=== PATIENT | female | born 1960 | race Caucasian/White ===

== ENCOUNTER 2019-02-15 15:40 | Inpatient (IN) | payer OTHER ==
[~2019-02-15] VITALS: Ht 152.4 cm; Wt 76.0 kg
[~2019-02-15 15:40] MED LIST: CEPH500 PO; CRUTCH4 USE; DOXY100 PO; HYDACE5 PO; MULVITMINE; RXHYDACE PO; SULTRIDS PO
[2019-02-15] MEDS ORDERED: LOSA25 (16:01)
[2019-02-15 16:07] LABS: BASOPHILS ABSOLUTE AUTO 0.03 K/mm3 (0.00-0.23); BASOPHILS PERCENT AUTO 0 % (0-2); EOSINOPHILS PERCENT AUTO 0 % (0-6); Hematocrit 44.5 % (33.0-51.0); Hemoglobin 14.8 g/dL (11.5-16.0); IMMATURE GRAN PERCENT AUTO 1 % (0-1); LYMPHOCYTES ABSOLUTE AUTO 1.32 K/mm3 (0.84-5.20); LYMPHOCYTES PERCENT AUTO 8 % (21-46); MONOCYTES ABSOLUTE AUTO 0.82 K/mm3 (0.16-1.47); MONOCYTES PERCENT AUTO 5 % (4-13); Mean Corpuscular HGB 29.9 pg (26.0-34.0); Mean Corpuscular HGB Conc 33.3 g/dL (31.5-36.5); Mean Corpuscular Volume 90 fL (80-100); Mean Platelet Volume 9.4 fL (9.1-12.4); NEUTROPHILS ABSOLUTE AUTO 14.33 K/mm3 (1.96-9.15); NEUTROPHILS PERCENT AUTO 86 % (41-73); Platelet Count 263 K/mm3 (150-400); RDW Standard Deviation 42.9 fL (35.1-46.3); Red Blood Cell Count 4.95 M/mm3 (3.80-5.20)
[2019-02-15 16:23] LABS: Alanine Aminotransfer (ALT/SGP 32 U/L (12-78); Albumin, Blood 3.9 g/dL (3.4-5.0); Albumin/Globulin Ratio 1.1 (0.8-1.8); Alk Phos 65 U/L (50-136); Anion Gap 7 mmol/L (6-16); Aspartate Aminotrans (AST/SGOT 36 U/L (12-37); Bilirubin, Total 2.7 mg/dL (0.1-1.0); Blood Urea Nitrogen 8 mg/dL (8-24); Bun/Creatinine Ratio 15.3 (12.0-20.0); CO2, Blood 23 mmol/L (21-32); Calcium, Blood 8.8 mg/dL (8.5-10.1); Chloride, Blood 106 mmol/L (98-108); Creatinine, Blood 0.52 mg/dL (0.40-1.00); Globulin, Blood 3.4 g/dL (2.2-4.0); Glomerular Filtration Rate >60 (60-); Glucose, Blood 130 mg/dL (70-99); Potassium, Blood 3.6 mmol/L (3.5-5.5); Sodium, Blood 136 mmol/L (136-145); Total Protein, Blood 7.3 g/dL (6.4-8.2)
[2019-02-15] MEDS ORDERED: LOSA50 PO (16:42)
[2019-02-15] MEDS ORDERED: EMERGEN-C 1,01000 MG PO (16:42)
--- NOTE | 2019-02-15 18:19 | NUR ---
SHIFT SUMMARY NEW ER ADMIT OF DIVERTIC WITH MICROPERF. PT ALERT, ORIENTED, AND INDEP. PT REPORTS MINIMAL ABD PAIN AT THIS TIME. NPO. IVF INFUSING WITH ABX. VSS. ORIENTED TO ROOM AND CALL LIGHT. WILL CONT TO MONITOR.
--- NOTE | 2019-02-16 03:58 | NUR ---
SHIFT SUMMARY PT A&O X4 T/O SHIFT. HOSP. DAY 1. ABD PAIN MANAGED PER EMAR; ABD SOFT; BT X4; PT REPORTS LOOSE STOOLS; PT DENIES NUASEA. NPO; ORAL SWABS AT BEDSIDE; ORAL CARE SUPPLIES IN ROOM; PT INDEPENDENT IN ROOM. SCD'S TO BLE'S. CALL LIGHT IN REACH; PT DEMONSTRATES USE. WCTM UNTIL REPORT TO DAY SHIFT RN.
[2019-02-16 04:26] LABS: BASOPHILS ABSOLUTE AUTO 0.03 K/mm3 (0.00-0.23); BASOPHILS PERCENT AUTO 0 % (0-2); EOSINOPHILS PERCENT AUTO 0 % (0-6); Hematocrit 38.6 % (33.0-51.0); IMMATURE GRAN ABSOLUTE AUTO 0.08 K/mm3 (0.00-0.10); IMMATURE GRAN PERCENT AUTO 1 % (0-1); LYMPHOCYTES ABSOLUTE AUTO 1.17 K/mm3 (0.84-5.20); LYMPHOCYTES PERCENT AUTO 8 % (21-46); MONOCYTES ABSOLUTE AUTO 0.83 K/mm3 (0.16-1.47); MONOCYTES PERCENT AUTO 6 % (4-13); Mean Corpuscular HGB 29.7 pg (26.0-34.0); Mean Corpuscular HGB Conc 33.7 g/dL (31.5-36.5); Mean Corpuscular Volume 88 fL (80-100); Mean Platelet Volume 9.5 fL (9.1-12.4); NEUTROPHILS ABSOLUTE AUTO 12.66 K/mm3 (1.96-9.15); NEUTROPHILS PERCENT AUTO 86 % (41-73); Platelet Count 221 K/mm3 (150-400); RDW Coefficient Variation 13.2 % (11.7-14.2); RDW Standard Deviation 42.5 fL (35.1-46.3); Red Blood Cell Count 4.38 M/mm3 (3.80-5.20); White Blood Cell Count 14.77 K/mm3 (4.00-11.30)
[2019-02-16 04:40] LABS: Anion Gap 7 mmol/L (6-16); Blood Urea Nitrogen 9 mg/dL (8-24); Bun/Creatinine Ratio 16.3 (12.0-20.0); CO2, Blood 24 mmol/L (21-32); Calcium, Blood 8.2 mg/dL (8.5-10.1); Chloride, Blood 111 mmol/L (98-108); Creatinine, Blood 0.55 mg/dL (0.40-1.00); Glomerular Filtration Rate >60 (60-); Glucose, Blood 116 mg/dL (70-99); Potassium, Blood 3.3 mmol/L (3.5-5.5); Sodium, Blood 142 mmol/L (136-145)
[2019-02-16 04:43] LABS: International Normalized Ratio 1.21; Prothrombin Time Results 12.6 Sec (9.7-11.5)
--- NOTE | 2019-02-16 19:21 | NUR ---
PT HAS BEEN STABLE THIS SHIFT. DR CAMPOVERDE CONSULTED. PLAN TO CONT WITH CONSERVATIVE TREATMENT. PT REMAINS ON ICE CHIPS ONLY. INDEP TO BATHROOM. DANETTE URINE. CONT FREQUENT DIARRHEA. CONT IV FLUIDS. PAIN MANAGED WITH TYLENOL AND FENTANYL ORDERED. ZOFRAN X1 FOR NAUSEA, NO EMESIS. LABS TO REPEAT IN THE AM. PT USES CALL LIGHT APPROPRIATELY.
--- NOTE | 2019-02-17 03:38 | NUR ---
SHIFT SUMMARY PT A&O X4 T/O SHIFT. LOW, TRANSVERSE ABD PAIN MANAGED PER EMAR. PT CONT. TO HAVE FREQUENT LOOSE/LIQUID BM'S. NAUSEA X1; NO EMESIS. PT NPO WITH ICE CHIPS AT BEDSIDE. ORAL SWABS AND ORAL CARE SUPPLIES IN PT ROOM. VSS; RA, PT DENIES SOB AND CP. PT INDEPENDENT IN ROOM AND PERSONAL CARE. SCD'S TO BLE'S. CALL LIGHT IN REACH; PT DEMONTRATES USE. WCTM UNTIL REPORT TO DAY SHIFT RN.
[2019-02-17 04:04] LABS: BASOPHILS ABSOLUTE AUTO 0.02 K/mm3 (0.00-0.23); BASOPHILS PERCENT AUTO 0 % (0-2); EOSINOPHILS PERCENT AUTO 0 % (0-6); Hematocrit 36.7 % (33.0-51.0); Hemoglobin 11.9 g/dL (11.5-16.0); IMMATURE GRAN ABSOLUTE AUTO 0.05 K/mm3 (0.00-0.10); IMMATURE GRAN PERCENT AUTO 0 % (0-1); LYMPHOCYTES ABSOLUTE AUTO 1.24 K/mm3 (0.84-5.20); LYMPHOCYTES PERCENT AUTO 10 % (21-46); MONOCYTES ABSOLUTE AUTO 0.59 K/mm3 (0.16-1.47); MONOCYTES PERCENT AUTO 5 % (4-13); Mean Corpuscular HGB 29.1 pg (26.0-34.0); Mean Corpuscular HGB Conc 32.4 g/dL (31.5-36.5); Mean Corpuscular Volume 90 fL (80-100); Mean Platelet Volume 9.5 fL (9.1-12.4); NEUTROPHILS PERCENT AUTO 84 % (41-73); Platelet Count 202 K/mm3 (150-400); RDW Coefficient Variation 13.2 % (11.7-14.2); RDW Standard Deviation 43.8 fL (35.1-46.3); Red Blood Cell Count 4.09 M/mm3 (3.80-5.20)
[2019-02-17 04:18] LABS: Anion Gap 6 mmol/L (6-16); Blood Urea Nitrogen 10 mg/dL (8-24); Bun/Creatinine Ratio 21.1 (12.0-20.0); CO2, Blood 23 mmol/L (21-32); Calcium, Blood 8.1 mg/dL (8.5-10.1); Chloride, Blood 114 mmol/L (98-108); Creatinine, Blood 0.47 mg/dL (0.40-1.00); Glomerular Filtration Rate >60 (60-); Glucose, Blood 99 mg/dL (70-99); Potassium, Blood 3.5 mmol/L (3.5-5.5); Sodium, Blood 143 mmol/L (136-145)
--- NOTE | 2019-02-17 08:48 | NUR ---
REPORTS ABD PAIN IS "STILL SORE BUT BETTER" MEDICATED FOR PAIN WTIH FENTANYL ORDERED, DENIES ANY NAUSEA, CONT. REPORTS CONTINUES TO HAVE LOOSE/WATERY STOOLS, DENIES ANY OTHER DISCOMFORT, CONT. CURRENT TX.
--- NOTE | 2019-02-17 18:20 | NUR ---
SUMMARY PAIN IS TOLERABLE WITH FENTANYL IV, DENIES ANY NAUSEA, CONT. TO HAVE LOOSE/WATERY STOOLS, TAKING SMALL AMOUNTS OF CLEAR LIQUIDS, REPORT HAVING SOME BLOATING AFTER A FEW SIPS OF CLEARS, REPORTS PASSING FLATUS, NO ACUTE CHANGES THIS SHIFT.
[2019-02-18 03:54] LABS: BASOPHILS ABSOLUTE AUTO 0.03 K/mm3 (0.00-0.23); BASOPHILS PERCENT AUTO 0 % (0-2); EOSINOPHILS ABSOLUTE AUTO 0.03 K/mm3 (0.00-0.68); EOSINOPHILS PERCENT AUTO 0 % (0-6); Hematocrit 34.6 % (33.0-51.0); Hemoglobin 11.3 g/dL (11.5-16.0); IMMATURE GRAN ABSOLUTE AUTO 0.03 K/mm3 (0.00-0.10); IMMATURE GRAN PERCENT AUTO 0 % (0-1); LYMPHOCYTES ABSOLUTE AUTO 1.25 K/mm3 (0.84-5.20); LYMPHOCYTES PERCENT AUTO 14 % (21-46); MONOCYTES ABSOLUTE AUTO 0.48 K/mm3 (0.16-1.47); MONOCYTES PERCENT AUTO 5 % (4-13); Mean Corpuscular HGB 29.3 pg (26.0-34.0); Mean Corpuscular HGB Conc 32.7 g/dL (31.5-36.5); Mean Corpuscular Volume 90 fL (80-100); Mean Platelet Volume 9.6 fL (9.1-12.4); NEUTROPHILS ABSOLUTE AUTO 7.07 K/mm3 (1.96-9.15); NEUTROPHILS PERCENT AUTO 80 % (41-73); Platelet Count 223 K/mm3 (150-400); RDW Coefficient Variation 13.2 % (11.7-14.2); RDW Standard Deviation 43.8 fL (35.1-46.3); Red Blood Cell Count 3.86 M/mm3 (3.80-5.20); White Blood Cell Count 8.89 K/mm3 (4.00-11.30)
[2019-02-18 04:08] LABS: Anion Gap 7 mmol/L (6-16); Blood Urea Nitrogen 8 mg/dL (8-24); Bun/Creatinine Ratio 18.6 (12.0-20.0); CO2, Blood 23 mmol/L (21-32); Calcium, Blood 7.8 mg/dL (8.5-10.1); Chloride, Blood 113 mmol/L (98-108); Creatinine, Blood 0.43 mg/dL (0.40-1.00); Glomerular Filtration Rate >60 (60-); Glucose, Blood 99 mg/dL (70-99); Potassium, Blood 3.4 mmol/L (3.5-5.5); Sodium, Blood 143 mmol/L (136-145)
--- NOTE | 2019-02-18 07:52 | NUR ---
SUMMARY PT REPORTING NAUSEA AFTER CLREAR LIQS PO. ZOFRAN EFFECTIVE.HAVING DIARRHEA.
--- NOTE | 2019-02-18 18:30 | NUR ---
SUMMARY: NO ACUTE CHANGE TODAY. VSS, PT A/O, INDEPENDENT IN ROOM. PT MEDICATED FOR PAIN X1 OTHERWISE HAS DENIED PAIN, N/V. CONTINUES TO HAVE SOME DIAHHREA. DR. CARLSON AND DR. ROSE SAW PT, SEE NOTES. DR. ROSE ADVANCED DIET TO CLEAR LIQ AND PT HAS TOLERATED WELL. NO ACUTE CONCERNS AT THIS TIME. WILL CTM AND REPORT TO NOAH BLAIR.
--- NOTE | 2019-02-19 03:59 | NUR ---
SHIFT SUMMARY PT A&O X4 T/O SHIFT. ABD SOFT, BT X4. ABD PAIN MANAGED PER EMAR; PT C/O HEADACHE MANAGED PER EMAR AND WITH PEPSI, PT STS REGULAR CAFFEINE INTAKE. PT REPORTS IMPROVED PAIN LEVELS THIS AM. PT REPORTS MILD PASSING NAUSEA, NO EMESIS. SCD'S TO BLE'S. CALL LIGHT IN REACH; PT DEMONSTRATES USE. WCTM UNTIL REPORT TO DAY SHIFT RN.
[2019-02-19 05:29] LABS: Anion Gap 7 mmol/L (6-16); Blood Urea Nitrogen 5 mg/dL (8-24); Bun/Creatinine Ratio 12.3 (12.0-20.0); CO2, Blood 25 mmol/L (21-32); Calcium, Blood 8.4 mg/dL (8.5-10.1); Chloride, Blood 108 mmol/L (98-108); Creatinine, Blood 0.41 mg/dL (0.40-1.00); Glomerular Filtration Rate >60 (60-); Glucose, Blood 114 mg/dL (70-99); Potassium, Blood 3.2 mmol/L (3.5-5.5); Sodium, Blood 140 mmol/L (136-145)
[2019-02-19] MEDS ORDERED: Augmentin 875-1 EACH PO (10:56)
[2019-02-19] MEDS ORDERED: Norco 5-325 Ta1 EACH PO (10:57)
--- NOTE | 2019-02-19 11:22 | NUR ---
DISCHARGE SUMMARY PT A&OX4, VSS, LEFT FLOOR VIA WC WITH BOTTLE PACKER TO GO HOME WITH FIANCEE AND MOTHER, WITH ALL PERSONAL POSSESSIONS INCLUDING DISCHARGE PACKET AND 1 NARC SCRIPT; AUGMENTIN SCRIPT FAXED TO [facility]. DISCHARGE INSTRUCTIONS PROVIDED. PT REP UNDERSTANDING THOSE INSTRUCTIONS INCLUDING 2WK FU WITH SURGEON AND FIRST AVAILABLE APPT FOLLOWUP WITH PCP. IV DC.
== END 2019-02-19 11:17 | disposition home or self-care (01) | DRG 392 ==
LOC: ER 15:40 → SURS 17:14
PROVIDERS: Emergency Medicine; Internal Medicine; Nurse Practitioner Acute Care; ADMIT Internal Medicine
DX: K57.20 Diverticulitis of large intestine with perforation and abscess without bleeding (principal); I10 Essential (primary) hypertension; E87.6 Hypokalemia
CPT/HCPCS: 36415; 74176; 80048; 80053; 83735; 85025; 85610; 96365; 96375; 99285-25; A9270; J0360; J0696; J1885; J2405; J2543; J3010; J3480; J7030

== ENCOUNTER 2019-05-06 06:46 | Day surgery (SDC) | payer OTHER ==
[~2019-05-06] VITALS: Ht 152.4 cm; Wt 71.6 kg
[~2019-05-06 06:46] MED LIST changes: +Augmentin 875-1 EACH PO; +EMERGEN-C 1,01000 MG PO; +LOSA25; +LOSA50 PO; +Norco 5-325 Ta1 EACH PO
--- NOTE | 2019-05-06 07:54 | NUR ---
05/06/19 0754 Josefina Wall VERBALIZES HAVING "REAL MILD GAS PAINS FROM PREP."
--- NOTE | 2019-05-06 10:59 | NUR ---
05/06/19 1059 Zahra Mayes V PT BROUGHT TO SDU FOR OBSERVATION D/T UNRETREAVED POLYP. DR. CAMPOVERDE REQUESTED FOR PT TO REMAIN IN SDU UNTIL BM IN ATTEMPT TO RETRIEVE POLYP. PT DID HAVE A BM UPON ARRIVING TO SDU. BM MAINLY LIQUID WITH SUBSTANTIAL AMOUNT OF BLOOD AND LARGE CLOTS NOTED. LIQUID AND CLOTS STRAINED, NO POLYP FOUND. DR CAMPOVERDE NOTIFIED AND REQUESTED THAT PT REMAIN FOR ANOTHER 30 MINUTES TO ATTEMPT ANOTHER BM.
--- NOTE | 2019-05-06 13:23 | NUR ---
05/06/19 1323 Josefina Wall LATE ENTRY FOR 0820 PT. STARTING TO RETCH, PT. SUCTIONED FOR NO SECRETIONS. ORDER GIVEN FOR 4MG IV ZOFRAN WHICH WAS GIVEN. PT. ALSO WITH HICCUPS OFF & ON DURING COLONOSCOPY. PT. SUCTIONED OFF & ON T.O. PROCEDURE FOR SMALL AMT OF CLEAR SECRETIONS. PT. WITH JAW THRUST/CHIN LIFT AT TIMES DURING PROCEDURE NEEDED. PT. ALSO MOVING T.O. PROCEDURE, QUESTIONING IF PT. HAS RESTLESS BODY SINCE NO MATTER WITH BOLUS DOSES OF PROPOFOL PT. WOULD STILL MOVE. ORSC.DFT IN ROOM ASSISTING TO HELP KEEP PT. STILL. BP WOULD GO UP, DR. CAMPOVERDE NOTIFIED, NO ORDERS GIVEN. BP CUFFS ALSO CHANGED SINCE AT TIMES PT. LAYING ON CUFF WOULDN'T READ, ALSO PT. MOVING, SO AT TIMES HARD TO GET A BP. NEXT PROCEDURE PT. SHOULD BE AN ANESTHESIA CASE.
== END 2019-05-06 11:28 | disposition home or self-care (01) ==
LOC: ORSCSDS 06:46
PROVIDERS: Surgery
PROC: 0DBK8ZX Excision of Ascending Colon, Via Natural or Artificial Opening Endoscopic, Diagnostic (ICD-10-PCS; principal; 2019-05-06 08:00)
PROC: 0DBM8ZX Excision of Descending Colon, Via Natural or Artificial Opening Endoscopic, Diagnostic (ICD-10-PCS; principal; 2019-05-06 08:00)
PROC: 0DBN8ZX Excision of Sigmoid Colon, Via Natural or Artificial Opening Endoscopic, Diagnostic (ICD-10-PCS; principal; 2019-05-06 08:00)
PROC: 0DBP8ZX Excision of Rectum, Via Natural or Artificial Opening Endoscopic, Diagnostic (ICD-10-PCS; principal; 2019-05-06 08:00)
PROC: 0DBH8ZX Excision of Cecum, Via Natural or Artificial Opening Endoscopic, Diagnostic (ICD-10-PCS; principal; 2019-05-06 08:00)
DX: K57.80 Diverticulitis of intestine, part unspecified, with perforation and abscess without bleeding (principal); Z83.71 Family history of colonic polyps; D12.0 Benign neoplasm of cecum; D12.2 Benign neoplasm of ascending colon; D12.5 Benign neoplasm of sigmoid colon; D12.4 Benign neoplasm of descending colon; D12.8 Benign neoplasm of rectum; I10 Essential (primary) hypertension; Z79.899 Other long term (current) drug therapy
CPT/HCPCS: 88305; J0330; J0461; J2001; J2405; J2704; J7120